=== PATIENT | male | born 1960 | race Caucasian/White ===

== ENCOUNTER 2018-06-09 10:14 | Observation (INO) | payer OTHER ==
[2018-06-09 10:37] VITALS: BMI 27.5
[2018-06-09] MEDS ORDERED: Sodium Chloride 0.9% 500 ML IV STA (10:38)
--- NOTE | 2018-06-09 10:39 | ED PDOC ---
Upper Extremity Pain/Injury Time Seen by Provider: 06/09/18 10:25 Chief Complaint (Nursing): Finger,Hand,&Wrist Chief Complaint (Provider): Wrist pain History Per: Patient History/Exam Limitations: no limitations Onset/Duration Of Symptoms: Days (few weeks) Current Symptoms Are (Timing): Still Present Additional Complaint(s): Pt. with wrist pain on the wrist. No injury. Worsening pain. No numbness, tingles, headaches, chest pain, dyspnea. Seen by Dr. Longoria. Past Medical History Reviewed: Nursing Documentation, Vital Signs - Medical History PMH: HTN Denies: Chronic Kidney Disease - Surgical History Surgical History: Appendectomy - Family History Family History: States: Unknown Family Hx - Home Medications Home Medications: Ambulatory Orders Medication Instructions Recorded HCTZ/Losartan Potassium [Hyzaar 1 tab PO DAILY 06/09/18 12.5 mg-50 mg] Multivitamin [Multi-Vitamin Daily] 1 tab PO DAILY 06/09/18 - Allergies Allergies/Adverse Reactions: Allergies Allergy/AdvReac Type Severity Reaction Status Date / Time No Known Allergies Allergy Verified 06/08/18 14:39 Review of Systems ROS Statement: Except As Marked, All Systems Reviewed And Found Negative Musculoskeletal: Positive for: Other (wrist pain R) Physical Exam - Reviewed Nursing Documentation Reviewed: Yes Vital Signs Reviewed: Yes - Physical Exam Appears: Positive for: Non-toxic, No Acute Distress Skin: Positive for: Normal Color, Warm, DRY Neck: Positive for: Normal, Painless ROM Cardiovascular/Chest: Positive for: Regular Rate, Rhythm Respiratory: Positive for: CNT, Normal Breath Sounds Pulses-Radial (L): 2+ Pulses-Radial (R): 2+ Back: Positive for: Normal Inspection. Negative for: L CVA Tenderness, R CVA Tenderness Extremity: Positive for: Normal ROM, Tenderness (R wrist). Negative for: Pedal Edema Neurologic/Psych: Positive for: Alert, Oriented - Progress ED Course And Treament: 1057: Spoke with Dr. Longoria. Will admit to his service for further eval and tx. Disposition - Clinical Impression Clinical Impression: Wrist pain - Patient ED Disposition Is Patient to be Admitted: Yes Counseled Patient/Family Regarding: Studies Performed, Diagnosis - Disposition Disposition Time: 10:59 Condition: FAIR - POA Present On Arrival: None
[2018-06-09] MEDS ORDERED: Propofol 10 mg/ml Inj (20 ML) ONE (10:43)
[2018-06-09] MEDS ORDERED: Midazolam 2 MG/2 ML VIAL ONE (10:44)
[2018-06-09] MEDS ORDERED: ceFAZolin IV 2 gm in Dextrose 2 GM/50 ML BAG IVPB ONE (11:12)
[2018-06-09] MEDS ORDERED: Lactated Ringer's 1,000 ML IV ONE (11:25)
[2018-06-09] MEDS ORDERED: Lidocaine 2% w Epi 1:100,000 Inj IJ ONE (11:40)
--- NOTE | 2018-06-09 12:07 | RAD ---
Date of service: 06/09/2018 PROCEDURE: Right Wrist Radiographs. HISTORY: PAIN COMPARISON: None. FINDINGS: BONES: Normal. No fracture. JOINTS: Normal. No dislocation. SOFT TISSUES: Normal. OTHER FINDINGS: None. IMPRESSION: No evidence of acute displaced right rib fracture.
[2018-06-09] MEDS ORDERED: HYDROmorphone 0.5 mg/0.5 ml ISec IVP PRN (12:29)
[2018-06-09 13:39] VITALS: RESP 18
[2018-06-09 15:00] VITALS: BP 129/83; PULSE 75; TEMP 97.4; O2SAT 97
--- NOTE | 2018-06-09 22:24 | OP ---
PROCEDURE DATE: 06/09/2018 PREOPERATIVE DIAGNOSIS: Right severe carpal tunnel syndrome. POSTOPERATIVE DIAGNOSIS: Right severe carpal tunnel syndrome. PROCEDURE: Endoscopic right carpal tunnel release surgery with local neuroplasty, [address]139. SURGEON: Darrius Longoria MD ANESTHESIA: General and local. BLOOD LOSS: None. COMPLICATIONS: None. DISPOSITION: Stable to recovery room. INDICATIONS: This is a 58-year-old right hand dominant male who presents to [facility] with a complaint of severe pain and numbness over his right hand. Symptoms have been worsening over the past couple of days. The patient has difficulty making a fist due to pain and numbness throughout the palmar aspect of the hand. He was seen in the emergency room and diagnosed with severe carpal tunnel syndrome. The patient was taken emergently to the operating room for the above procedure. Risks and benefits of the surgery were explained. Risks included, but not limited to bleeding, infection, tendon, nerve and vessel injury, instability, chronic pain, and potential need for additional surgery in the future. The patient understood the above risks and elected to proceed. Informed consent was obtained. DESCRIPTION OF PROCEDURE: The patient was brought to the operating room and placed supine on the operating room table. After adequate general anesthesia was given and prophylactic antibiotics, a well-padded nonsterile tourniquet was placed on the patient's right upper extremity. The entire extremity was then prepped and draped in the standard surgical fashion. A time-out was performed. A transverse 2-cm incision was outlined over the distal flexion crease. The arm was elevated and exsanguinated, and the tourniquet was inflated to 215 mmHg. Incision was made through the skin only. All superficial veins were cauterized. The palmaris longus tendon was identified, then retracted ulnarly. The fascia was then incised, and the carpal canal was entered. Series of dilators were entered into the carpal canal to dilate the entrance site. After this, an endoscopic Arthrex carpal tunnel knife was inserted into carpal canal, and the carpal ligament on the roof was identified. The median nerve was also identified and protected throughout the whole procedure. The carpal ligament was then incised from distal to proximal direction in its entirety releasing the pressure of the nerve. The endoscopic kit was then removed. Local neuroplasty was performed. Proximal fascia was then also exposed and incised over the median nerve. All zones of compression were released over the median nerve. The wound was then irrigated. The tourniquet was deflated. Hemostasis obtained. The skin was closed with 4-0 Monocryl subcuticular sutures. The patient tolerated the procedure well. Sterile dressing was applied consisting of Steri-Strips, fluffs, and Rashad. The patient tolerated the procedure well and was returned to the recovery room in excellent condition. Darrius Longoria MD
== END 2018-06-09 14:00 | disposition home or self-care (01) ==
LOC: H.ER 10:14 → H.ERHOLD 10:39
PROVIDERS: ADMIT Orthopaedic Surgery; ATTEND Orthopaedic Surgery
DX: G56.03 Carpal tunnel syndrome, bilateral upper limbs (principal); I10 Essential (primary) hypertension
CPT/HCPCS: 29848; 73110; 99284; G0378; J0690; J2001; J2250; J2704; J2765; J3010; J7030; J7120

== ENCOUNTER 2018-10-16 07:48 | Day surgery (SDC) | payer OTHER ==
[2018-10-16] MEDS ORDERED: Lactated Ringer's 500 ML IV ONE (08:17)
[2018-10-16 08:26] VITALS: RESP 20; O2SAT 95
[2018-10-16] MEDS ORDERED: Propofol 10 mg/ml Inj (20 ML) ONE (10:30)
[2018-10-16 10:54] VITALS: TEMP 97
[2018-10-16 11:03] VITALS: BP 111/75; PULSE 100
== END 2018-10-16 12:11 | disposition home or self-care (01) ==
LOC: H.ENDO 07:48
PROVIDERS: ATTEND Internal Medicine Gastroenterology
DX: Z12.11 Encounter for screening for malignant neoplasm of colon (principal); I10 Essential (primary) hypertension; E66.9 Obesity, unspecified; K64.1 Second degree hemorrhoids; K57.30 Diverticulosis of large intestine without perforation or abscess without bleeding
CPT/HCPCS: 45378; J2001; J2704; J7120